=== PATIENT | female | born 1990 | race African-American/Black ===

== ENCOUNTER 2017-11-25 07:37 | Observation (INO) ==
[2017-11-25] MEDS ORDERED: Temazepam 15 MG Capsule PO PRN (12:43)
--- NOTE | 2017-11-25 12:55 | P.HPIM ---
History of Present Illness Primary Care Physician: No Primary Care Physician Chief Complaint: Shortness of breath History of Present Illness: This patient is a 27-year-old female with a long-standing history of menorrhagia and uterine fibroids with excessive bleeding. Patient has been following up with her outpatient [facility] director and was recommended to start control pills but she has not done that yet. She reports 30 days out of the month with uterine bleeding using both tampons and pads. She reports previous anemia requiring transfusion in the past secondary to this issue. She came to the emergency room [place] hemoglobin was 5.9. Patient was transferred to this facility for further evaluation and treatment of acute anemia with symptoms of lightheadedness and dizziness - Diagnosis (1) Menorrhagia (2) Anemia Inpatient Certification: I certify that the inpatient services were ordered in accordance with Medicare regulations governing the order. This includes certification that hospital inpatient services are reasonable and necessary and in the case of services not specified as inpatient-only under 42 CFR 419.22(n), that they are appropriately provided as inpatient services in accordance to with the 2-midnight benchmark under 43 CFR 412.3(e) Review of Systems All other systems reviewed negative except as stated in HPI Constitutional: Reports fatigue Cardiovascular: Reports rapid, pounding, or irregular heartbeat Respiratory: Reports shortness of breath PMFSH - History History Provided By: Patient - Medical History Medical History: Medical History (Last Updated 11/25/17 @ 12:53 by Sabra Gross MD) Anemia Fibroid (bleeding) (uterine) - Surgical History Surgical History: Surgical History (Last Reviewed 11/25/17 @ 12:52 by Sabra Gross MD) No history of previous surgery - Family History Family History: Family History (Last Updated 11/25/17 @ 12:52 by Sabra Gross MD) Other Menorrhagia - Tobacco History Second Hand Smoke Exposure: No Smoking Status: Never smoker - Alcohol History How Often Do You Have a Drink Containing Alcohol: Never - Substance Use History Substance History: No History of Abuse Medications and Allergies Active Medications: Active Medications Sodium Chloride (Ns Inj) 250 mls @ 15 mls/hr IV.SIG ONCE BECKI Stop: 11/26/17 05:39 Temazepam (Restoril) 15 mg PO HS PRN PRN Reason: INSOMNIA Allergies Allergy/AdvReac Type Severity Reaction Status Date / Time No Known Allergies Allergy Verified 11/25/17 08:17 Home Medications Medication Instructions Recorded Confirmed Type No Known Home Medications 11/25/17 11/25/17 History Exam Vital signs: Vital Signs 11/25/17 12:40 Temperature 96.8 F L Pulse Rate 71 Respiratory Rate 20 Blood Pressure 133/86 Pulse Oximetry 100 Intake & Output 11/24/17 11/25/17 11/25/17 18:59 06:59 18:59 Weight 129.9 kg Other: Weight On Admission 129.9 kg Narrative: GENERAL: Patient calm resting and without complaints SKIN: Warm and dry. No rashes or ecchymotic injuries EYES: Pupils equal and round. pale sclera. No injection or drainage. ENT: External ear exam normal. No acute nasal bleeding or discharge. Mucous membranes pink and moist. CARDIOVASCULAR: Regular rate and rhythm. No murmurs gallops or rubs appreciated RESPIRATORY: Good air flow and effort without accessory muscle use. Clear to auscultation. Breath sounds equal bilaterally. GASTROINTESTINAL: Abdomen soft, non-tender, nondistended. Hepatic and splenic margins not palpable. MUSCULOSKELETAL: Extremities without clubbing, cyanosis, or edema. No obvious deformities. NEUROLOGICAL: Awake and alert. No obvious cranial nerve deficits. Motor grossly within normal limits. Five out of 5 muscle strength in the arms and legs. Normal speech. Results - Labs Labs: Hemoglobin 5.9 Caprini VTE Risk Assessment Caprini VTE Risk Assessment: Moderate/High Risk (score >= 2) VTE Pharmacological Exception Reason: Active bleeding Caprini Risk Assessment Model: Point Value = 1 Point Value = 2 Point Value = 3 Point Value = 5 Age 41-60 Minor surgery BMI > 25 kg/m2 Swollen legs Varicose veins or History of unexplained or recurrent spontaneous Oral contraceptives or hormone replacement Sepsis (< 1 month) Serious lung disease, including pneumonia (< 1 month) Abnormal pulmonary function Acute myocardial infarction Congestive heart failure (< 1 month) History of inflammatory bowel disease Medical patient at bed rest Age 61-74 Arthroscopic surgery Major open surgery (> 45 min) Laparoscopic surgery (> 45 min) Malignancy Confined to bed (> 72 hours) Immobilizing plaster cast Central venous access Age >= 75 History of VTE Family history of VTE Factor V Leiden Prothrombin [id number] Lupus anticoagulant Anticardiolipin antibodies Elevated serum homocysteine Heparin-induced thrombocytopenia Other congenital or acquired thrombophilia Stroke (< 1 month) Elective arthroplasty Hip, pelvis, or leg fracture Acute spinal cord injury (< 1 month) Prophylaxis Regimen: Total Risk Factor Score Risk Level Prophylaxis Regimen 0-1 Low Early ambulation 2 Moderate Order ONE of the following: *Sequential Compression Device (SCD) *Heparin 5000 units SQ BID 3-4 Higher Order ONE of the following medications: *Heparin 5000 units SQ TID *Enoxaparin/Lovenox 40 mg SQ daily (WT < 150 kg, CrCl > 30 mL/min) *Enoxaparin/Lovenox 30 mg SQ daily (WT < 150 kg, CrCl > 10-29 mL/min) *Enoxaparin/Lovenox 30 mg SQ BID (WT < 150 kg, CrCl > 30 mL/min) AND/OR *Sequential Compression Device (SCD) 5 or more Highest Order ONE of the following medications: *Heparin 5000 units SQ TID (Preferred with Epidurals) *Enoxaparin/Lovenox 40 mg SQ daily (WT < 150 kg, CrCl > 30 mL/min) *Enoxaparin/Lovenox 30 mg SQ daily (WT < 150 kg, CrCl > 10-29 mL/min) *Enoxaparin/Lovenox 30 mg SQ BID (WT < 150 kg, CrCl > 30 mL/min) AND *Sequential Compression Device (SCD) Assessment and Plan - Assessment (1) Menorrhagia Code(s): N92.0 - Excessive and frequent menstruation with regular cycle Status : Acute Plan: Patient will benefit from oral contraceptive therapy for which she will follow- up with her primary care doctor in [place] She already has a prescription and will need to pick this up. (2) Anemia Code(s): D64.9 - Anemia, unspecified Status: Acute Plan: Secondary to vaginal bleeding/menorrhagia Transfuse 2 units packed red blood cells Follow-up for iron studies
[2017-11-25] MEDS ORDERED: Sodium Chlor 0.9% Inj 250 ML IV.SIG SCH (13:00)
[2017-11-25 13:42] LABS: Hematocrit 21.6 % (35.0-46.0)
[2017-11-25 13:49] LABS: Hemoglobin 6.5 gm/dL (11.6-15.3)
[2017-11-25 23:09] VITALS: PULSE 76
[2017-11-25 23:28] VITALS: O2SAT 100
[2017-11-26 07:01] LABS: Baso % (Auto) 0.4 % (0.0-2.0); Eos # (Auto) 0.1 th/mm3 (0.0-0.4); Eos % (Auto) 1.5 % (0.0-4.0); Hematocrit 28.1 % (35.0-46.0); Hemoglobin 8.6 gm/dL (11.6-15.3); Lymph # (Auto) 1.9 th/mm3 (1.0-4.8); Lymph % (Auto) 24.9 % (9.0-44.0); Mean Corpuscular Hemoglobin 23.3 pg (27.0-34.0); Mean Corpuscular Volume 76.2 fL (80.0-100.0); Mean Platelet Volume 8.4 fL (7.0-11.0); Mono # (Auto) 0.6 th/mm3 (0.0-0.9); Mono % (Auto) 8.5 % (0.0-8.0); Neut # (Auto) 4.8 th/mm3 (1.8-7.7); Neut % (Auto) 64.7 % (16.0-70.0); Platelet Count 371 th/mm3 (150-450); Red Blood Count 3.68 mil/mm3 (4.00-5.30); Red Cell Distribution Width 22.1 % (11.6-17.2); White Blood Count 7.4 th/mm3 (4.0-11.0)
[2017-11-26 07:11] LABS: Mean Corpuscular HGB Conc 30.6 % (32.0-36.0)
[2017-11-26 07:37] LABS: Acanthocytes Occ; Ovalocytes 1+; Platelet Estimate Normal (Normal); Platelet Morphology Normal (Normal); Rouleaux Present; Target Cells 1+
[2017-11-26 07:45] VITALS: BP 103/61; RESP 20; TEMP 97.7
--- NOTE | 2017-11-26 08:19 | P.PNIM ---
Subjective Interval history: Patient seen in follow-up for anemia secondary to menorrhagia. Hemoglobin 8.6 today no new events overnight. Patient expected to be discharged today Physical Exam Vital signs: Vital Signs 11/25/17 12:40 11/25/17 15:14 11/25/17 16:57 Temperature 96.8 F L 97.2 F L 98.4 F Pulse Rate 71 76 82 Respiratory Rate 20 20 18 Blood Pressure 133/86 130/80 133/86 Pulse Oximetry 100 100 11/25/17 17:12 11/25/17 20:00 11/25/17 20:24 Temperature 99.0 F 98.2 F 98.1 F Pulse Rate 76 74 Respiratory Rate 18 20 Blood Pressure 138/89 127/69 128/62 Pulse Oximetry 100 98 97 11/25/17 20:41 11/25/17 21:41 11/25/17 22:41 Temperature 97.0 F L 97.8 F 97.9 F Pulse Rate 70 76 Respiratory Rate 18 16 Blood Pressure 117/88 117/88 128/73 Pulse Oximetry 100 98 11/25/17 23:10 11/26/17 07:44 Temperature 98.0 F 97.7 F Pulse Rate 76 Respiratory Rate 20 Blood Pressure 125/76 103/61 Pulse Oximetry 100 100 Intake & Output 11/25/17 11/26/17 11/26/17 18:59 06:59 18:59 Intake Total 480 / 480 640 / 640 100 / 100 Balance 480 / 480 640 / 640 100 / 100 Weight 129.9 kg 129.7 kg Intake: IV 100 / 100 NS Inj 250 ML @ 15 mls/hr IV. 100 / 100 SIG ONCE BECKI Rx#:[id number] Oral 480 / 480 240 / 240 Intake (Blood Product) Amt 0 / 0 400 / 400 Rbc As-3 Leukoreduced Unit 0 / 0 400 / 400 [id number] Rbc As-3 Leukoreduced Unit 0 / 0 [id number] Other: # Voids 2 2 Weight On Admission 129.9 kg Narrative: GENERAL: Patient calm resting and without complaints SKIN: Warm and dry. No rashes or ecchymotic injuries EYES: Pupils equal and round. No scleral icterus. No injection or drainage. ENT: External ear exam normal. No acute nasal bleeding or discharge. Mucous membranes pink and moist. CARDIOVASCULAR: Regular rate and rhythm. No murmurs gallops or rubs appreciated RESPIRATORY: Good air flow and effort without accessory muscle use. Clear to auscultation. Breath sounds equal bilaterally. GASTROINTESTINAL: Abdomen soft, non-tender, nondistended. Hepatic and splenic margins not palpable. MUSCULOSKELETAL: Extremities without clubbing, cyanosis, or edema. No obvious deformities. NEUROLOGICAL: Awake and alert. No obvious cranial nerve deficits. Motor grossly within normal limits. Five out of 5 muscle strength in the arms and legs. Normal speech. Results - Labs CBC & Chem 7: 11/26/17 05:55 Laboratory Results - last 24 hr 11/25/17 11/25/17 11/25/17 13:27 13:27 13:27 CBC w Diff WBC RBC Hgb 6.5 L* Hct 21.6 L MCV MCH MCHC RDW Plt Count MPV Neut % (Auto) Lymph % (Auto) Kimble % (Auto) Eos % (Auto) Baso % (Auto) Neut # (Auto) Lymph # (Auto) Kimble # (Auto) Eos # (Auto) Baso # (Auto) WBC Differential Diff Scan Differential Comment Platelet Estimate Platelet Morphology Target Cells Ovalocytes Acanthocytes (Spur) Rouleaux Keratocytes Beta HCG, Qual Blood Type Cancelled O Positive Blood Type Recheck Cancelled Rho(D) Type Cancelled Weak D (Du) Cancelled Antibody Screen Cancelled Negative MTS Gel Crossmatch See Detail 11/25/17 11/26/17 13:27 05:55 CBC w Diff Slide review pending WBC 7.4 RBC 3.68 L Hgb 8.6 L D Hct 28.1 L MCV 76.2 L MCH 23.3 L MCHC 30.6 L RDW 22.1 H Plt Count 371 MPV 8.4 Neut % (Auto) 64.7 Lymph % (Auto) 24.9 Kimble % (Auto) 8.5 H Eos % (Auto) 1.5 Baso % (Auto) 0.4 Neut # (Auto) 4.8 Lymph # (Auto) 1.9 Kimble # (Auto) 0.6 Eos # (Auto) 0.1 Baso # (Auto) 0.0 WBC Differential . Diff Scan Auto diff confirmed Differential Comment . Platelet Estimate Normal Platelet Morphology Normal Target Cells 1+ H Ovalocytes 1+ H Acanthocytes (Spur) Occ H Rouleaux Present H Keratocytes Occ H Beta HCG, Qual Less than 1.00 Blood Type Blood Type Recheck Rho(D) Type Weak D (Du) Antibody Screen MTS Gel Crossmatch Assessment and Plan - Assessment (1) Menorrhagia Code(s): N92.0 - Excessive and frequent menstruation with regular cycle Status : Acute Plan: Patient will benefit from oral contraceptive therapy for which she will follow- up with her primary care doctor in [place] She already has a prescription and will need to pick this up. (2) Anemia Code(s): D64.9 - Anemia, unspecified Status: Acute Plan: Secondary to vaginal bleeding/menorrhagia Status post 2 units packed red blood cells, hemoglobin 8.6 - Plan Discharge Planning: Discharge home Diet regular Activity unrestricted
== END 2017-11-26 09:01 | disposition home or self-care (01) ==
LOC: PH3 07:37 → NEDDLT 07:37 → PH3 12:15 → INTOOBSV 12:43
PROVIDERS: ADMIT Hospitalist; ATTEND Hospitalist